=== PATIENT | female | born 1965 | race Caucasian/White ===

== ENCOUNTER 2021-04-06 10:45 | Outpatient (CLI) | payer OTHER ==
--- NOTE | 2021-04-06 11:52 | XRAY Report ---
PROCEDURE: Ankle 2 View RT INDICATIONS: PAIN OF RIGHT ANKLE JOINT TECHNIQUE: 2 views of the ankle were acquired. COMPARISON: None. FINDINGS: Chronic appearing 3 mm ossicle projects adjacent to the lateral malleolus tip although technically ag e indeterminate. Plantar calcaneal spurring also seen. Scattered subchondral sclerosis and spurring. Elsewhere, no acute fracture. Acute fracture IMPRESSION: Small ossicle projects adjacent to the lateral malleolus tip, however radiographically t his appears chronic/degenerative. Recommend correlation point tenderness. Mild plantar calcaneal spurring. If the patient's pain or other symptoms persist, consider further ev aluation with MRI. Reviewed by: Delfino Bynum MD on 04/06/2021 11:51 AM PDT Approved by: Delfino Bynum MD on 04/06/2021 11:51 AM PDT Station ID: [id number]
== END 2021-04-06 10:46 | disposition home or self-care (01) ==
LOC: DI.S 10:45
PROVIDERS: ATTEND Nurse Practitioner Family
DX: M25.571 Pain in right ankle and joints of right foot (principal); M77.31 Calcaneal spur, right foot; R93.6 Abnormal findings on diagnostic imaging of limbs

== ENCOUNTER 2021-05-25 08:00 | Outpatient (CLI) | payer OTHER ==
[2021-05-25 20:46] LABS: BILIRUBIN,URINE NEGATIVE (NEGATIVE); GLUCOSE, URINE (UA) NEGATIVE (NEGATIVE); KETONES,URINE (UA) NEGATIVE (NEGATIVE); LEUKOCYTE ESTERASE, URINE MODERATE (NEGATIVE); NITRITE,URINE NEGATIVE (NEGATIVE); OCCULT BLOOD,URINE LARGE (NEGATIVE); PROTEIN,URINE TRACE mg/dL (NEGATIVE); UROBILINOGEN,URINE 0.2 (NORMAL) E.U./dL (NORMAL)
[2021-05-25 20:48] LABS: BACTERIA,URINE Rare /HPF (None Seen); CLARITY,URINE SL. CLOUDY (CLEAR); CRYSTALS,URINE 3-5 Calcium Oxalate /LPF; SQUAMOUS EPITHELIAL CELL,UR RARE Squamous (<= Few); WBC,URINE >25 /HPF (0-5)
== END 2021-05-25 23:59 | disposition home or self-care (01) ==
LOC: LAB.S 08:00
PROVIDERS: ATTEND Emergency Medicine
DX: N39.0 Urinary tract infection, site not specified (principal)
CPT/HCPCS: 81001; 87077; 87086; 87181

== ENCOUNTER 2021-10-01 08:00 | Outpatient (CLI) | payer OTHER | END 2021-10-01 23:59 | LOC: LAB.S 08:00 | PROVIDERS: ATTEND Physician Assistant Medical | DX: N39.0 Urinary tract infection, site not specified (principal) | CPT/HCPCS: 87086 ==

== ENCOUNTER 2022-02-11 08:00 | Outpatient (CLI) | payer OTHER | END 2022-02-11 23:59 | disposition home or self-care (01) | LOC: LAB.S 08:00 | PROVIDERS: ATTEND Physician Assistant | DX: R30.0 Dysuria (principal) | CPT/HCPCS: 87077; 87086; 87181 ==